=== PATIENT | female | born 1980 | race Caucasian/White ===

== ENCOUNTER 2017-11-01 23:47 | Emergency (ER) | payer SELFPAY ==
[2017-11-02] MEDS: IBUPROFEN 800 MG TAB PO (01:15)
[2017-11-02] MEDS: AUGMENTIN 875 MG TAB PO (01:15)
== END 2017-11-02 02:09 | disposition home or self-care (01) ==
LOC: M ED 23:47
DX: J01.90 Acute sinusitis, unspecified (principal); R51 Headache; F17.200 Nicotine dependence, unspecified, uncomplicated; Z79.899 Other long term (current) drug therapy; Z88.2 Allergy status to sulfonamides
CPT/HCPCS: 99282

== ENCOUNTER 2018-01-10 00:56 | Emergency (ER) | payer MEDICAID, SELFPAY ==
[2018-01-10] MEDS: CLINDAMYCIN 150 MG CAP PO ×2 (01:36)
[2018-01-10] MEDS: LIDOCAINE VISCOUS 2% SOLN 15ML UDC MT ×2 (01:36)
[2018-01-10] MEDS: traMADol 50 MG TAB (BULK 4 TAB ED) PO ×2 (01:37)
== END 2018-01-10 01:39 | disposition home or self-care (01) ==
LOC: M ED 00:56
DX: K04.7 Periapical abscess without sinus (principal); K02.9 Dental caries, unspecified; F17.200 Nicotine dependence, unspecified, uncomplicated; Z88.1 Allergy status to other antibiotic agents; Z88.2 Allergy status to sulfonamides; Z79.899 Other long term (current) drug therapy
CPT/HCPCS: 99282

== ENCOUNTER 2018-04-25 18:27 | Emergency (ER) | payer OTHER, MEDICAID ==
[2018-04-25] MEDS: PENICILLIN V POTASSIUM 500 MG TAB PO (19:05)
== END 2018-04-25 19:15 | disposition home or self-care (01) ==
LOC: M ED 18:27
DX: K04.7 Periapical abscess without sinus (principal); F17.210 Nicotine dependence, cigarettes, uncomplicated; Z88.2 Allergy status to sulfonamides; Z79.899 Other long term (current) drug therapy
CPT/HCPCS: 99282